=== PATIENT | male | born 2000 | race African-American/Black ===

== ENCOUNTER 2022-05-30 20:14 | Emergency (ER) | payer OTHER ==
[~2022-05-30] VITALS: Ht 182.9 cm; Wt 60.5 kg
[2022-05-31] MEDS ORDERED: IBUP-2028 MT (00:56)
[2022-05-31] MEDS ORDERED: TETANUS, DIPHTHERIA, PERTUSSIS VAC/PF 0.5ML (>10YR OLD) IM ONE (01:00)
[2022-05-31] MEDS ORDERED: IBUPROFEN 400MG TABLET PO ONE (01:00)
[2022-05-31 01:30] VITALS: BP 114/78
== END 2022-05-31 01:45 | disposition home or self-care (01) ==
LOC: ER 20:14
DX: S61.315A Laceration without foreign body of left ring finger with damage to nail, initial encounter (principal); W26.0XXA Contact with knife, initial encounter; Y93.89 Activity, other specified; Y92.89 Other specified places as the place of occurrence of the external cause; Y99.9 Unspecified external cause status
CPT/HCPCS: 90471; 90715; 99283

== ENCOUNTER 2022-06-03 09:51 | Emergency (ER) | payer OTHER ==
[~2022-06-03] VITALS: Ht 185.4 cm; Wt 60.0 kg
[~2022-06-03 09:51] MED LIST: IBUP-2028 MT
[2022-06-03 10:00] VITALS: BP 122/68
[2022-06-03] MEDS ORDERED: BACITRACIN ZINC OINT UDPKT TOP ONE (11:00)
[2022-06-03] MEDS ORDERED: BO1 TP (11:20)
== END 2022-06-03 11:31 | disposition home or self-care (01) ==
LOC: ER 09:51
DX: Z48.00 Encounter for change or removal of nonsurgical wound dressing (principal)
CPT/HCPCS: 99282

== ENCOUNTER 2022-06-12 06:59 | Emergency (ER) | payer SELFPAY ==
[~2022-06-12] VITALS: Ht 167.6 cm; Wt 65.0 kg
[~2022-06-12 06:59] MED LIST changes: +BO1 TP
[2022-06-12 10:49] VITALS: BP 126/64
== END 2022-06-12 10:50 | disposition home or self-care (01) ==
LOC: ER 07:11
DX: Z48.00 Encounter for change or removal of nonsurgical wound dressing (principal)
CPT/HCPCS: 99281

== ENCOUNTER 2022-07-04 09:09 | Emergency (ER) | payer MEDICAID ==
[~2022-07-04] VITALS: Ht 182.9 cm; Wt 62.0 kg
[2022-07-04 09:15] VITALS: BP 126/68
[2022-07-04] MEDS ORDERED: HALOPERIDOL LACTATE 5MG/ML VIAL IM ONE (10:00)
[2022-07-04 11:14] LABS: BASOPHILS % 0.3 % (0.0-2.0); HEMATOCRIT. 39.1 % (42.0-52.0); HEMOGLOBIN. 12.7 g/dL (14.0-18.0); LYMPHOCYTES % 7.7 % (20.0-50.0); MEAN CORPUSCULAR HEMOGLOBIN 28.4 pg (28.0-32.0); MEAN CORPUSCULAR VOLUME 87.2 fL (80.0-94.0); MEAN PLATELET VOLUME 8.5 fl (7.4-10.4); PLATELET 216 x1000/uL (130-400); RED BLOOD CELL COUNT 4.48 mill/uL (4.7-6.1); RED CELL DISTRIBUTION WIDTH 13.4 % (11.6-14.6)
[2022-07-04 11:19] LABS: CHLORIDE 109 mEq/L (98-107)
== END 2022-07-04 12:58 | disposition home or self-care (01) ==
LOC: ER 09:44
DX: R11.2 Nausea with vomiting, unspecified (principal); R10.9 Unspecified abdominal pain
CPT/HCPCS: 36415; 80053; 83690; 85025; 96372; 99283; J1630